=== PATIENT | male | born 1985 | race Caucasian/White ===

== ENCOUNTER 2020-04-01 13:39 | Emergency (ER) | payer MEDICARE, MEDICAID ==
[~2020-04-01] VITALS: Ht 182.9 cm; Wt 94.4 kg
[~2020-04-01 13:39] MED LIST: ZIPR20CA2 PO
[2020-04-01 13:59] VITALS: BP 145/90
== END 2020-04-01 16:24 | disposition home or self-care (01) ==
LOC: ED 15:50
DX: B34.9 Viral infection, unspecified (principal); R50.9 Fever, unspecified
CPT/HCPCS: 71045; 99283

== ENCOUNTER 2020-05-01 17:33 | Emergency (ER) | payer MEDICARE, MEDICAID ==
--- NOTE | 2020-05-01 17:45 | NUR ---
PT PUSHED PROVIDER, TOLD HIM TO LEAVE
== END 2020-05-01 20:02 | disposition left against medical advice (07) ==
LOC: ED 18:30
DX: R05 Cough (principal); R51.9 Headache, unspecified; R07.9 Chest pain, unspecified
CPT/HCPCS: 99281

== ENCOUNTER 2020-10-20 23:00 | Emergency (ER) | payer MEDICAID, MEDICARE ==
[~2020-10-20] VITALS: Ht 185.4 cm; Wt 90.0 kg
[2020-10-20 23:04] VITALS: BP 140/92
--- NOTE | 2020-10-20 23:11 | NUR ---
[facility]ANTH FROM [place]. EMS STATES PT HAS ADDICTION TO GOING [facility] PT BROUGHT IN TO GET MEDICALLY CLEARED BECAUSE HE HAS A COUGH. PT MUMBLING AND LAUGHING AND SPEAKING NONCOMPREHENSIBLE WORDS. PT NOT ANSWERING ANY QUESTIONS. PT ATTACHED TO MONITORS, VSS, NADN. SITTER OUTSIDE ROOM. BED IN LOW POSITION, RAILS ENGAGED. WCTM
--- NOTE | 2020-10-20 23:14 | NUR ---
CHARGE NURSE REPORTS PT BEING A POSSIBLE SI. PT WONT ANSWER SI/HI QUESTIONS SO UNABLE TO ASSESS BY THIS NURSE. SAFETY PRECAUTIONS PUT INTO PLACE. SITTER OUTSIDE ROOM FOR SAFETY MONITORING. GARAGE DOORS SECURED. NADN. AWAITING MD FOR EVAL. PT APPEARS TO HAVE OCCASIONAL DRY COUGH. NO OTHER SYMPTOMS PRESENT.
--- NOTE | 2020-10-20 23:59 | NUR ---
Patient is resting comfortably in bed watching tv. Bed in lowest, rails engaged. nadn. WCTM. safety precautions still in place.
--- NOTE | 2020-10-21 00:38 | NUR ---
CARE ASSUMED FOR DC. PT DC'D HOME WITH INSTRUCTIONS. HAS BEEN MEDICALLY CLEARED TO FOLLOW UP AT [place].
--- NOTE | 2020-10-21 00:45 | NUR ---
pt was given taxi voucher back to [facility] for safe discharge.
== END 2020-10-21 00:41 | disposition home or self-care (01) ==
LOC: ED 23:30
DX: F20.89 Other schizophrenia (principal); Z20.822 Contact with and (suspected) exposure to COVID-19; F22 Delusional disorders
CPT/HCPCS: 87635; 99283

== ENCOUNTER 2020-12-01 21:30 | Inpatient (IN) | payer MEDICARE, MEDICAID ==
[~2020-12-01] VITALS: Ht 185.4 cm; Wt 83.7 kg
[2020-12-01] MEDS ORDERED: BISACODYL 10 MG SUPP PR PRN (22:00)
[2020-12-01] MEDS ORDERED: POLYETHYLENE GLYCOL 17 GM PACKET PO PRN (22:00)
[2020-12-01] MEDS ORDERED: DOCUSATE 100 MG CAPSULE PO PRN (22:00)
[2020-12-01] MEDS ORDERED: ONDANSETRON ODT 4 MG PO PRN (22:00)
[2020-12-01 23:40] VITALS: BP 127/87
[2020-12-02 04:21] LABS: MICROSCOPIC NOT IND
[2020-12-02 07:25] VITALS: BP 135/91
[2020-12-02] MEDS ORDERED: HALO10TA PO ×2 (08:06)
[2020-12-02] MEDS: LORazepam 1MG TABLET PO PRN ×2 (08:19→16:07)
[2020-12-02 08:43] LABS: CHOL/HDL RATIO 4.3; FREE T4 (FREE THYROXINE) 0.91 ng/dL (0.76-1.46); LDL/HDL RATIO 2.7 (0.5-3.0)
[2020-12-02] MEDS: QUETIAPINE 25MG TABLET PO PRN (16:49)
[2020-12-02] MEDS: ZIPRASIDONE 40MG CAPSULE PO SCH (20:58)
[2020-12-02 21:08] VITALS: BP 122/80
[2020-12-03 07:17] VITALS: BP 127/86
[2020-12-03] MEDS: ZIPRASIDONE 40MG CAPSULE PO SCH ×2 (08:55→20:23)
[2020-12-03] MEDS: QUETIAPINE 25MG TABLET PO PRN ×2 (13:59→20:23)
[2020-12-03] MEDS: LORazepam 1MG TABLET PO PRN (13:59)
[2020-12-03 19:34] VITALS: BP 151/101
[2020-12-03 22:05] VITALS: BP 113/77
[2020-12-04 07:24] VITALS: BP 101/68
[2020-12-04] MEDS: LORazepam 1MG TABLET PO PRN ×2 (07:51→22:25)
[2020-12-04] MEDS: QUETIAPINE 25MG TABLET PO PRN (07:51)
[2020-12-04] MEDS: ZIPRASIDONE 40MG CAPSULE PO SCH ×2 (08:42→20:14)
[2020-12-04] MEDS ORDERED: LORazepam 1MG TABLET PO ONE (11:00)
[2020-12-04] MEDS ORDERED: QUETIAPINE 25MG TABLET PO ONE (11:00)
[2020-12-04 19:44] VITALS: BP 133/80
[2020-12-05] MEDS: QUETIAPINE 25MG TABLET PO PRN ×3 (00:27→17:56)
[2020-12-05 07:19] VITALS: BP 134/93
[2020-12-05] MEDS: LORazepam 1MG TABLET PO PRN ×2 (08:26→17:56)
[2020-12-05] MEDS: ZIPRASIDONE 40MG CAPSULE PO SCH ×2 (08:26→19:56)
[2020-12-05] MEDS ORDERED: QUETIAPINE 25MG TABLET PO ONE (11:00)
[2020-12-05] MEDS ORDERED: LORazepam 1MG TABLET PO ONE (11:00)
[2020-12-05 19:20] VITALS: BP 154/94
[2020-12-05] MEDS: DIVALPROEX 500 MG TABLET.DR PO SCH (19:56)
[2020-12-06] MEDS: QUETIAPINE 25MG TABLET PO PRN ×3 (00:17→21:47)
[2020-12-06] MEDS: LORazepam 1MG TABLET PO PRN ×3 (00:17→21:47)
[2020-12-06 07:26] VITALS: BP 132/88
[2020-12-06] MEDS: ZIPRASIDONE 40MG CAPSULE PO SCH ×2 (08:55→19:44)
[2020-12-06] MEDS: DIVALPROEX 500 MG TABLET.DR PO SCH (08:55)
[2020-12-06 19:28] VITALS: BP 132/84
[2020-12-06] MEDS: DIVALPROEX 250 MG TABLET.DR PO SCH (19:44)
[2020-12-07 07:27] VITALS: BP 107/80
[2020-12-07] MEDS: QUETIAPINE 25MG TABLET PO PRN ×2 (07:28→23:26)
[2020-12-07] MEDS: LORazepam 1MG TABLET PO PRN ×2 (07:28→22:11)
[2020-12-07] MEDS: DIVALPROEX 250 MG TABLET.DR PO SCH ×2 (07:28→20:21)
[2020-12-07] MEDS: ZIPRASIDONE 40MG CAPSULE PO SCH ×2 (08:32→20:21)
[2020-12-07] MEDS: PALIPERIDONE 3 MG TAB.ER.24 PO SCH (15:26)
[2020-12-07 19:31] VITALS: BP 136/90
[2020-12-07] MEDS: ACETAMINOPHEN 325 MG TABLET PO PRN (22:11)
[2020-12-08 07:24] VITALS: BP 119/79
[2020-12-08] MEDS: LORazepam 1MG TABLET PO PRN ×2 (08:48→21:07)
[2020-12-08] MEDS: ZIPRASIDONE 40MG CAPSULE PO SCH ×2 (08:48→20:05)
[2020-12-08] MEDS: QUETIAPINE 25MG TABLET PO PRN ×2 (08:49→21:08)
[2020-12-08] MEDS: DIVALPROEX 250 MG TABLET.DR PO SCH ×2 (08:49→20:05)
[2020-12-08] MEDS: PALIPERIDONE 3 MG TAB.ER.24 PO SCH (08:49)
[2020-12-08 19:14] VITALS: BP 121/79
[2020-12-09 07:31] VITALS: BP 123/82
[2020-12-09] MEDS: QUETIAPINE 25MG TABLET PO PRN ×3 (08:06→20:44)
[2020-12-09] MEDS: PALIPERIDONE 3 MG TAB.ER.24 PO SCH (08:06)
[2020-12-09] MEDS: LORazepam 1MG TABLET PO PRN ×3 (08:06→20:44)
[2020-12-09] MEDS: DIVALPROEX 250 MG TABLET.DR PO SCH ×2 (08:06→20:44)
[2020-12-09] MEDS: ZIPRASIDONE 40MG CAPSULE PO SCH ×2 (08:07→20:44)
[2020-12-09 19:34] VITALS: BP 145/93
[2020-12-09] MEDS: ACETAMINOPHEN 325 MG TABLET PO PRN (20:44)
[2020-12-10 08:03] VITALS: BP 132/90
[2020-12-10] MEDS: DIVALPROEX 250 MG TABLET.DR PO SCH ×2 (08:54→20:19)
[2020-12-10] MEDS: PALIPERIDONE 3 MG TAB.ER.24 PO SCH (08:55)
[2020-12-10] MEDS: ZIPRASIDONE 40MG CAPSULE PO SCH ×2 (08:55→20:19)
[2020-12-10] MEDS: LORazepam 1MG TABLET PO PRN (16:07)
[2020-12-10] MEDS: QUETIAPINE 25MG TABLET PO PRN (16:08)
[2020-12-10 18:57] VITALS: BP 126/83
[2020-12-11] MEDS: LORazepam 1MG TABLET PO PRN ×3 (01:33→21:50)
[2020-12-11] MEDS: QUETIAPINE 25MG TABLET PO PRN ×3 (01:34→21:50)
[2020-12-11 07:25] VITALS: BP 138/80
[2020-12-11] MEDS: DIVALPROEX 250 MG TABLET.DR PO SCH ×2 (08:50→20:22)
[2020-12-11] MEDS: PALIPERIDONE 3 MG TAB.ER.24 PO SCH (08:50)
[2020-12-11] MEDS: ZIPRASIDONE 40MG CAPSULE PO SCH ×2 (08:53→20:23)
[2020-12-11 19:24] VITALS: BP 137/83
[2020-12-12 07:17] VITALS: BP 134/85
[2020-12-12] MEDS: DIVALPROEX 250 MG TABLET.DR PO SCH ×2 (08:12→20:41)
[2020-12-12] MEDS: ZIPRASIDONE 40MG CAPSULE PO SCH ×2 (08:12→20:41)
[2020-12-12] MEDS: PALIPERIDONE 3 MG TAB.ER.24 PO SCH (08:12)
[2020-12-12] MEDS: QUETIAPINE 25MG TABLET PO PRN (08:12)
[2020-12-12] MEDS: LORazepam 1MG TABLET PO PRN ×3 (09:38→18:48)
[2020-12-12 19:25] VITALS: BP 140/97
[2020-12-13] MEDS: LORazepam 1MG TABLET PO PRN ×4 (02:42→21:38)
[2020-12-13 07:23] VITALS: BP 137/85
[2020-12-13] MEDS: QUETIAPINE 25MG TABLET PO PRN ×2 (07:23→14:35)
[2020-12-13] MEDS: DIVALPROEX 250 MG TABLET.DR PO SCH ×2 (09:25→21:38)
[2020-12-13] MEDS: PALIPERIDONE 3 MG TAB.ER.24 PO SCH (09:26)
[2020-12-13] MEDS: ZIPRASIDONE 40MG CAPSULE PO SCH ×2 (09:26→21:38)
[2020-12-13 19:29] VITALS: BP 144/84
[2020-12-13] MEDS ORDERED: ZIPRASIDONE 20 MG INJ IM ONE (22:30)
[2020-12-14 07:42] VITALS: BP 128/84
[2020-12-14] MEDS: PALIPERIDONE 3 MG TAB.ER.24 PO SCH (08:01)
[2020-12-14] MEDS: ZIPRASIDONE 40MG CAPSULE PO SCH ×2 (08:01→19:32)
[2020-12-14] MEDS: DIVALPROEX 250 MG TABLET.DR PO SCH ×2 (08:02→19:33)
[2020-12-14] MEDS: LORazepam 1MG TABLET PO PRN ×2 (14:24→19:32)
[2020-12-14] MEDS: QUETIAPINE 25MG TABLET PO PRN ×2 (14:24→19:32)
[2020-12-14 19:46] VITALS: BP 140/87
[2020-12-15 07:42] VITALS: BP 119/83
[2020-12-15] MEDS: ZIPRASIDONE 40MG CAPSULE PO SCH ×2 (07:51→20:00)
[2020-12-15] MEDS: QUETIAPINE 25MG TABLET PO PRN ×3 (07:51→20:00)
[2020-12-15] MEDS: PALIPERIDONE 3 MG TAB.ER.24 PO SCH (07:51)
[2020-12-15] MEDS: DIVALPROEX 250 MG TABLET.DR PO SCH ×2 (07:52→20:00)
[2020-12-15] MEDS: LORazepam 1MG TABLET PO PRN ×3 (07:52→20:00)
[2020-12-15 19:23] VITALS: BP 133/84
[2020-12-15] MEDS ORDERED: OLANZAPINE 10 MG INJ IM ONE ×2 (22:09→22:30)
[2020-12-15] MEDS ORDERED: OLANZAPINE 10 MG TABLET ONE (22:09)
[2020-12-16 08:09] VITALS: BP 131/87
[2020-12-16] MEDS: LORazepam 1MG TABLET PO PRN (08:09)
[2020-12-16] MEDS: QUETIAPINE 25MG TABLET PO PRN (08:09)
[2020-12-16] MEDS: PALIPERIDONE 3 MG TAB.ER.24 PO SCH (08:10)
[2020-12-16] MEDS: ZIPRASIDONE 40MG CAPSULE PO SCH (08:11)
[2020-12-16] MEDS: DIVALPROEX 250 MG TABLET.DR PO SCH (08:12)
[2020-12-16] MEDS ORDERED: ZIPR40CA2 PO (13:15)
[2020-12-16] MEDS ORDERED: DIVA-59 PO (13:15)
[2020-12-16] MEDS ORDERED: PALI3TAB11 PO (13:15)
== END 2020-12-16 16:30 | disposition home or self-care (01) | DRG 885 ==
LOC: 3E 23:40
PROVIDERS: ADMIT Psychiatry & Neurology Psychosomatic Medicine; ATTEND Psychiatry & Neurology Psychosomatic Medicine
DX: F20.0 Paranoid schizophrenia (principal); F17.210 Nicotine dependence, cigarettes, uncomplicated; J45.909 Unspecified asthma, uncomplicated; Z91.19 Patient's noncompliance with other medical treatment and regimen; Z79.899 Other long term (current) drug therapy
CPT/HCPCS: 36415; 71045; 80061; 81003; 82607; 84439; 84443; 93005; J3486